=== PATIENT | female | born 1970 | race Caucasian/White ===

== ENCOUNTER 2016-08-14 09:11 | Inpatient (IN) ==
--- NOTE | 2016-08-13 21:56 | Discharge Summary ---
<VinEsther greer Chiquis - Last Filed: 08/13/16 21:53> Date of Encounter: 08/13/16 - Discharge Diagnosis (1) Aseptic loosening of prosthetic knee Priority: Primary Status: Acute Qualifiers: Encounter type: initial encounter Qualified Code(s): T84.038A - Mechanical loosening of other internal prosthetic joint, initial encounter; Z96.659 - Presence of unspecified artificial knee joint (2) Tobacco use Priority: Secondary Status: Chronic (3) Obesity Priority: Secondary Status: Chronic Qualifiers: Obesity type: unspecified obesity type Obesity severity: unspecified obesity severity Qualified Code(s): E66.9 - Obesity, unspecified - Discharge Medications Home Medications: Aspirin Enteric Coated [Aspirin EC] 325 mg PO DAILY #21 tablet.dr 08/13/16 [Rx] OxyCODONE Immed Rel [Roxicodone 5 MG] 5 - 10 mg PO Q6HR PRN #40 tablet 08/13/16 [Rx] Gabapentin [Neurontin] 800 mg PO TID 08/14/16 [History] Allergies/Adverse Reactions: Allergies tramadol Allergy (Verified 08/14/16 11:45) Rash pregabalin [From Lyrica] Adverse Reaction (Verified 08/14/16 11:45) Irritable sulfamethoxazole [From Bactrim] Adverse Reaction (Verified 08/14/16 11:45) See Comments mouth soreness trimethoprim [From Bactrim] Adverse Reaction (Verified 08/14/16 11:45) See Comments mouth soreness Primary care physician: Priya Otero CNP - Patient Status Disposition: Home, Self-Care Condition: Good - Discharge Instructions Follow Up With: Priya Otero CNP [Primary Care Provider] - - Hospital Course Hospital course: Ms. Kiser is a 46 year old female - Time Spent with Patient Total time spent providing and/or coordinating discharge services: <Jermaine Pace - Last Filed: 08/15/16 06:25> Date of Encounter: 08/15/16 Time of Encounter: 06:25 - Discharge Diagnosis (1) Aseptic loosening of prosthetic knee Priority: Primary Status: Acute Qualifiers: Encounter type: subsequent encounter Qualified Code(s): T84.038D - Mechanical loosening of other internal prosthetic joint, subsequent encounter; Z96.659 - Presence of unspecified artificial knee joint (2) Tobacco use Priority: Secondary Status: Chronic (3) Obesity Priority: Secondary Status: Chronic Qualifiers: Obesity type: unspecified obesity type Obesity severity: unspecified obesity severity Qualified Code(s): E66.9 - Obesity, unspecified Primary care physician: Priya Otero CNP - Patient Status Functional capacity at discharge: uses cane/walker Overall status at discharge: patient is progressing back to baseline - Hospital Course Hospital course: Ms. Kiser is a 46 year old female The patient had an uneventful postoperative course. They received antibiotics and physical therapy and were discharged in stable condition. There will follow -up in the office in 2 weeks. Aspirin DVT prophylaxis - Time Spent with Patient Total time spent providing and/or coordinating discharge services:
[2016-08-14] MEDS ORDERED: Albuterol 2.5 MG/3 ML NEBULIZER ONE (10:17)
[2016-08-14] MEDS ORDERED: Gabapentin 300 MG CAPSULE PO ONE (10:19)
[2016-08-14] MEDS ORDERED: Famotidine 20 MG/2 ML VIAL IVP ONE (10:19)
--- NOTE | 2016-08-14 10:21 | History & Physical Report ---
Date of Encounter: 08/14/16 Time of Encounter: 10:20 24 Hour HP Update - Instructions Instructions: If the History and Physical is less than 30 days old and was completed prior to A.M. admission and or procedure and has NOT been updated on calendar day of procedure please complete this update prior to performing procedure. - Update Patient reports changes in Medical Condition: No Changes in examination, assessment, or condition: No Changes in Medication: No Preop tests/diagnostics Reviewed: Yes Surgery Remains Indicated: Yes Consent for Planned Operative Procedure(s) Verified: Yes - Pre-Operative Checklist Preoperative Checklist Indicated: No Prophylactic Antibiotic Ordered: Yes Is VTE Prophylaxis Indicated?: Yes
--- NOTE | 2016-08-14 10:23 | Anesthesia Evaluation PreOp ---
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 08/13/16 [Rx] OxyCODONE Immed Rel [Roxicodone 5 MG] 5 - 10 mg PO Q6HR PRN #40 tablet 08/13/16 [Rx] Allergies tramadol Allergy (Verified 11/06/15 20:28) Rash pregabalin [From Lyrica] Adverse Reaction (Verified 08/04/16 10:56) Irritable sulfamethoxazole [From Bactrim] Adverse Reaction (Verified 03/14/15 19:13) See Comments mouth soreness trimethoprim [From Bactrim] Adverse Reaction (Verified 03/14/15 19:13) See Comments mouth soreness - Meds/Allergy Pre-op Review Medications Reviewed: Yes Allergies Reviewed: Yes Beta Blockers on Current Med List: No Anesthesia Results - Labs Laboratory Tests 08/04/16 08/04/16 08/04/16 11:10 11:10 11:10 Hgb 13.3 Hct 40.8 Plt Count 344 PT 11.4 INR 1.1 APTT 31.0 Sodium 139 Potassium 3.5 BUN 5 L Creatinine 0.78 - Imaging EKG: report reviewed (SR) Anesthesia Exam O2 Sat Height 1.57 m Height 1.57 m Weight 102.058 kg Weight 102.058 kg O2 Sat by Pulse Oximetry 95 Vital Signs Temp Pulse Resp BP Pulse Ox 98.0 F 62 18 122/75 95 08/14/16 10:21 08/14/16 10:21 08/14/16 10:21 08/14/16 10:21 08/14/16 10:21 Height: 5'2 Weight: 225 lbs NPO (# of Hours): MN Pain Scale: 0 - HEENT Pupil (Motor): Pupils equal, EOMI Mallampati: III Teeth: Edentulous Oral Opening: Less than or equal to 3 - 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: Oriented 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
[2016-08-14] MEDS ORDERED: Ringers Solution, Lactated 1,000 ML IVC SCH ×2 (10:30→13:52)
[2016-08-14] MEDS ORDERED: Tetracaine/PF 20 MG/2 ML AMPUL ONE (11:18)
[2016-08-14] MEDS ORDERED: *HR* Midazolam HCl 2 MG/2 ML VIAL ONE (11:19)
[2016-08-14] MEDS ORDERED: Bupivacaine/Clonidine Syringe 1 EACH SYRINGE ONE (11:19)
[2016-08-14] MEDS ORDERED: *HR* FentaNYL (PF) 100 MCG/2 ML VIAL ONE ×2 (11:19→11:39)
[2016-08-14] MEDS ORDERED: *HR* Propofol 200 MG/20 ML VIAL IVP ONE (11:39)
[2016-08-14] MEDS ORDERED: Lidocaine -MPF 2% 2 ML VIAL ONE (11:39)
[2016-08-14] MEDS ORDERED: Dexamethasone 4 MG/ML VIAL ONE (11:39)
[2016-08-14] MEDS ORDERED: *HR* Succinylcholine 200 MG/10 ML VIAL IVP ONE (11:39)
[2016-08-14] MEDS ORDERED: Ondansetron 4 MG/2 ML VIAL ONE (11:39)
[2016-08-14] MEDS ORDERED: Lidocaine -MPF 4% 5 ML AMPUL ONE (11:40)
--- NOTE | 2016-08-14 12:05 | Anesthesia Procedures ---
Date of Encounter: 08/14/16 Time of Encounter: 10:20 Procedures: Anesthesia - Nerve Block Procedure Date: 08/14/16 Time: 11:20 Pre-op Diagnosis: Loosening Rt TKA Surgical Procedure: TKA Revision Tibial Component Checklist: Correct Patient Identifier Correct side: Right Blood Thinner: No Monitor Applied: EKG, BP, Pulse Oximetry Supplemental Oxygen via Nasal Cannula (L/min): 2 Sedation: Versed (mg): 2 Sedation: Fentanyl (mcg): 100 Indication: Post Op Analgesia Pre-op Neuro Deficits: No Block Type: Femoral Catheter placed: No Depth at skin (cm): 3 Sterile Technique: Yes Ultrasound used: Yes Anatomy identified: Yes Visual spread of Local: Yes Neuro Stimulation: Yes Nerve Stimulator Range: >0.4 - 0.6 mA Blood on Needle Aspiration: No Smooth Injection of Local: Yes Pain with Injection of Local: No Prep: Chlorhexadine Needle: 22 x 50 mm Stimuplex Local: Tetracaine (20 mg), Other (Bupivacaine 0.5%) Volume (cc): 30 Number of Attempts: 1 Complications: None/effective block Vitals: Vital Signs/O2 Sat/Glucose, Most Current Temp Pulse Resp BP Pulse Ox 08/14/16 11:21 56 131/61 98 08/14/16 10:56 18 95 08/14/16 10:21 98.0 F 62 18 122/75 95
[2016-08-14] MEDS ORDERED: *HR* Promethazine 25 MG/ML VIAL IVP PRN (12:09)
[2016-08-14] MEDS ORDERED: Albuterol 2.5 MG/3 ML NEBULIZER IH PRN (12:09)
--- NOTE | 2016-08-14 12:19 | Orthopedic Operative Note ---
Date of procedure: 08/14/16 Pre-op diagnosis: Aseptic loosening right tibial component Post-op diagnosis: same Procedure: Procedure: Right revision tibial component Estimated blood loss: 200 cc Hardware: Arthrex tibia size 3, 14 x 50 stem, 16 PS Myra Exam Under anesthesia: Full flexion full extension well-healed incision no swelling or erythema no varus valgus instability Procedural Notes: Loosening of tibial component, cement synovitis Operative procedure: The patient was brought to the operating room and placed on the operating room table. After general anesthesia was administered the operative knee was examined. Findings were noted in the exam under anesthesia. The operative extremity was prepped and draped in sterile surgical fashion. The patient received IV antibiotics prior to skin incision. A standard midline incision was made centered over the patella. The incision was made through the skin and subcutaneous tissue through the old incision. A medial parapatellar tendon approach was performed. Care was taken to preserve tissue along the medial aspect of the patella. And to protect the patella tendon. The deep MCL was released off the medial tibia. The infra patella fat pad was excised. Cultures were obtained as well as Gram stain. 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 An extensive synovectomy was performed. The knee was brought into flexion the tibial poly-was removed. The femur was well fixed. Attention was then turned to the tibial component. The tibial component was loose and removed with an osteotome without any bone loss. Tibia was recut just below the level of the cement mantle. The tibia was prepared first sized to a 3 reamed to a 14 x 50 stem. The finishing punch was seated. Trial had good fit and fixation. Trial reduction revealed full extension and full flexion no varus valgus instability with an 16 PS Myra. Trial components removed knee sat for 2 minutes with a Betadine saline solution. It was irrigated out with pulse irrigation. Components were assembled on the back table. The tibia cemented. The 16 PS Myra was seated and secure. The had full flexion and full extension and excellent patella tracking no varus valgus instability. After the cement hardened the knee was irrigated out again. The knee was taken through a range of motion had excellent patella tracking. The extensor mechanism was closed with a running #2 Fiberwire suture and a running #2 PDS suture. The deep tissue was irrigated and closed deep with #1 PDS suture superficially with 0 PDS suture. The skin was closed with skin ronald. The patient was placed in a sterile dressing and postoperative brace. They were extubated and transferred to recovery room in stable condition. Anesthesia: SUKI Surgeon: Jermaine Pace Mineral Industry Teacher: Esther Elizabeth Condition: stable Disposition: PACU
[2016-08-14] MEDS: *HR* HYDROmorphone (PF) 1 MG/ML SYRINGE IVP PRN ×2 (12:50→13:02)
[2016-08-14 13:16] LABS: Hematocrit 37.7 % (35.3-44.9); Hemoglobin 11.9 g/dL (11.5-15.4)
[2016-08-14] MEDS ORDERED: Acetaminophen 325 MG TABLET PO PRN ×2 (13:52→14:06)
[2016-08-14] MEDS ORDERED: MOM Conc 10 ML UD.LIQ PO PRN ×2 (13:52→14:06)
[2016-08-14] MEDS ORDERED: Temazepam 15 MG CAPSULE PO PRN ×2 (13:52→14:06)
[2016-08-14] MEDS ORDERED: *HR* OxyCODONE Immed Rel 5 MG TABLET PO PRN ×4 (13:52→14:09)
[2016-08-14] MEDS ORDERED: Ondansetron 4 MG/2 ML VIAL IVP PRN ×2 (13:52→14:06)
[2016-08-14] MEDS ORDERED: Naloxone 0.4 MG/ML INJ IVP PRN ×2 (13:52→14:06)
[2016-08-14] MEDS ORDERED: Sennosides 8.6 MG TABLET PO PRN ×2 (13:52→14:06)
[2016-08-14] MEDS ORDERED: *HR* HYDROmorphone (PF) 1 MG/ML SYRINGE IVP PRN ×2 (13:52→14:06)
[2016-08-14] MEDS: Gabapentin 400 MG CAPSULE PO SCH ×2 (14:44→20:46)
[2016-08-14] MEDS ORDERED: ceFAZolin 2,000 MG in D5% in Water 100 ML IVPB SCH (16:00)
[2016-08-14] MEDS: Ringers Solution, Lactated 1,000 ML IVC SCH ×2 (16:33→17:35)
[2016-08-14] MEDS: Nicotine 14 MG PATCH.TD24 TD SCH (16:33)
[2016-08-14] MEDS: ceFAZolin 2,000 MG in D5% in Water 100 ML IVPB SCH ×2 (16:34→23:44)
[2016-08-14] MEDS: *HR* OxyCODONE Immed Rel 5 MG TABLET PO PRN ×2 (16:40→20:46)
[2016-08-14] MEDS: *HR* Enoxaparin 30 MG/0.3 ML SYRINGE SQ SCH (17:35)
[2016-08-14] MEDS ORDERED: *HR* Enoxaparin 30 MG/0.3 ML SYRINGE SQ SCH ×2 (18:00)
[2016-08-15] MEDS: *HR* OxyCODONE Immed Rel 5 MG TABLET PO PRN ×3 (00:46→08:50)
[2016-08-15] MEDS: *HR* Enoxaparin 30 MG/0.3 ML SYRINGE SQ SCH (05:47)
--- NOTE | 2016-08-15 06:26 | Orthopedics Progress Note ---
Date of Encounter: 08/15/16 Time of Encounter: 06:25 - Assessment and Plan (1) Aseptic loosening of prosthetic knee Current Visit: Yes Status: Acute Qualifiers: Encounter type: subsequent encounter Qualified Code(s): T84.038D - Mechanical loosening of other internal prosthetic joint, subsequent encounter; Z96.659 - Presence of unspecified artificial knee joint (2) Tobacco use Current Visit: Yes Status: Chronic (3) Obesity Current Visit: Yes Status: Chronic Qualifiers: Obesity type: unspecified obesity type Obesity severity: unspecified obesity severity Qualified Code(s): E66.9 - Obesity, unspecified Subjective Interval history: Patient was seen this morning doing well without complaints. Afebrile vital signs stable. Operative extremity: Neurovascularly intact Dressing clean dry and intact Calves nontender Assessment and plan: Continue with postoperative care Discharged today Objective Vital signs: Vital Signs Temp Pulse Resp BP Pulse Ox 08/15/16 04:10 98 F 76 16 113/61 97 08/15/16 00:09 98.8 F 59 15 126/76 96 08/14/16 19:44 98.4 F 84 18 130/71 98 08/14/16 17:00 97.7 F 78 18 115/73 95 08/14/16 16:00 97.6 F 67 16 130/85 98 08/14/16 14:37 98.6 F 68 18 120/79 99 08/14/16 13:52 97.8 F 68 16 144/88 99 08/14/16 13:25 58 16 152/88 99 08/14/16 13:15 98.2 F 55 16 154/89 98 08/14/16 13:05 66 16 156/85 92 08/14/16 12:55 72 16 151/73 96 08/14/16 12:45 98.8 F 77 16 164/99 99 08/14/16 11:21 56 131/61 98 08/14/16 10:56 18 95 08/14/16 10:21 98.0 F 62 18 122/75 95 Intake and Output 08/14/16 08/14/16 08/15/16 15:59 23:59 07:59 Intake Total 1100 / 1100 100 / 100 Output Total 200 / 200 Balance -200 / -200 1100 / 1100 100 / 100 Intake: IV Fluids 1100 / 1100 100 / 100 Lactated Ringers 1,000 ML 1000 / 1000 @ 75 mls/hr IVC .[id number] [facility] Rx#:[id number] Ancef 2,000 MG In 100 / 100 100 / 100 Dextrose 5% 100 ML @ 200 mls/hr IVPB Q8HR [facility] Rx#: [id number] Output: Estimated Blood Loss 200 / 200 Other: # Voids 1 Weight 102.058 kg - Labs CBC & BMP: 08/14/16 12:55 - VTE Documentation of Mechanical Device: Venous foot pump, device Consult Discharge Plan - Plan Referrals: Priya Otero, [employer] [Primary Care Provider] -
[2016-08-15 07:16] VITALS: BP 101/67
[2016-08-15] MEDS: Nicotine 14 MG PATCH.TD24 TD SCH (08:47)
[2016-08-15] MEDS: Gabapentin 400 MG CAPSULE PO SCH (08:47)
== END 2016-08-15 09:12 | disposition home or self-care (01) | DRG 467 ==
LOC: SAMDAY 09:11 → 3NENU 13:47
PROVIDERS: ADMIT Orthopaedic Surgery; ATTEND Orthopaedic Surgery